=== PATIENT | female | born 1940 | race Caucasian/White ===

== ENCOUNTER → 2017-10-07 | Outpatient (CLI) | payer OTHER ==
[~2017-10-07] MED LIST: ALEN70TA55 PO; AMIT50TA3 PO; ASPI81CH43 PO; ATEN100T PO; CALC600T57 PO; CHOL20007 PO; CINN500C7 PO; CLON0.1T PO; COEN400C8 PO; LATA0.0015 EACHEYE; LISI2.5T47 PO; OMEG100078 PO; RED600TA PO; TIMO0.5S49 EACHEYE; ZOLP10TA6 PO
[2017-10-07 15:59] LABS: Urine Blood Negative /uL (Negative); Urine Specific Gravity 1.004 (1.001-1.035)
[2017-10-07 16:11] LABS: Alanine Aminotransferase 20 U/L (13-56); Albumin 3.8 g/dL (3.4-5.0); Alkaline Phosphatase 77 U/L (45-117); Anion Gap 8 (5-15); Aspartate Aminotransferase 18 U/L (15-37); BUN/Creatinine Ratio 13.5; Bilirubin, Direct < 0.1 mg/dL (0-0.2); Bilirubin, Total 0.2 mg/dL (0.2-1.0); Blood Urea Nitrogen 13 mg/dL (7-18); Calcium 9.8 mg/dL (8.5-10.1); Carbon Dioxide 26 mmol/L (21-32); Chloride 100 mmol/L (98-107); Cholesterol 191 mg/dL (< 200); GFR African American 73 mL/min; GFR Non-African American 60 mL/min; Glucose 84 mg/dL (74-106); HDL Cholesterol 51 mg/dL (40-59); LDL Cholesterol 129 mg/dL (< 100); Potassium 3.9 mmol/L (3.5-5.1); Sodium 134 mmol/L (136-145); Total Protein 7.9 g/dL (6.4-8.2); Triglycerides 110 mg/dL (< 150)
[2017-10-07 16:14] LABS: Basophils # (auto) 0.1 uL; Basophils % (auto) 1.4 % (0.0-2.0); Eosinophils # (auto) 0.4 uL; Eosinophils % (auto) 5.1 % (0.0-7.0); Hematocrit 40.4 % (36.0-46.0); Hemoglobin 13.6 g/dL (12.2-16.2); Lymphocytes % (auto) 25.2 % (10.0-50.0); Mean Corpuscular Hemoglobin 29.4 pg (28.0-32.0); Mean Corpuscular Hgb Conc. 33.6 g/dL (32.0-36.0); Mean Corpuscular Volume 87.3 fL (80.0-100.0); Monocytes # (auto) 0.7 uL; Monocytes % (auto) 8.8 % (0.0-12.0); Neutrophils # (auto) 4.8 uL; Neutrophils % (auto) 59.5 % (37.0-80.0); Nucleated Red Blood Cells % 0.6 %; Platelet Count (auto) 347 10^3/uL (140-450); Red Blood Cells 4.63 10^6/uL (4.0-5.20); Red Cell Distribution Width 14.6 % (11.8-14.3); White Blood Cell 8.1 10^3/uL (4.4-10.8)
== END | disposition home or self-care (01) ==
LOC: LAB 11:28
PROVIDERS: ATTEND Internal Medicine Cardiovascular Disease
DX: E78.5 Hyperlipidemia, unspecified (principal); D64.9 Anemia, unspecified; I10 Essential (primary) hypertension; E11.9 Type 2 diabetes mellitus without complications; E03.9 Hypothyroidism, unspecified; E55.9 Vitamin D deficiency, unspecified; N39.0 Urinary tract infection, site not specified; K74.1 Hepatic sclerosis
CPT/HCPCS: 36415; 80048; 80061; 80076; 81003; 82306; 83036; 84439; 84443; 85025

== ENCOUNTER → 2017-11-10 | Outpatient (CLI) | payer OTHER ==
[~2017-11-10] VITALS: Ht 152.4 cm; Wt 67.1 kg
== END | disposition home or self-care (01) ==
LOC: Rad HDHVI 07:56
PROVIDERS: ATTEND Internal Medicine Cardiovascular Disease
DX: I42.0 Dilated cardiomyopathy (principal); I11.0 Hypertensive heart disease with heart failure; I50.23 Acute on chronic systolic (congestive) heart failure; I08.1 Rheumatic disorders of both mitral and tricuspid valves
CPT/HCPCS: 78452; 93017; 93306; 96374; A9500

== ENCOUNTER 2018-02-20 15:25 | Inpatient (IN) | payer OTHER ==
[~2018-02-20] VITALS: Ht 152.4 cm; Wt 76.6 kg
[2018-02-20 16:41] LABS: Basophils # (auto) 0.1 uL; Eosinophils # (auto) 0.1 uL; Lymphocytes # (auto) 1.1 uL; Monocytes # (auto) 1.1 uL; Red Cell Distribution Width 14.3 % (11.8-14.3)
[2018-02-20 16:43] LABS: Basophils % (auto) 1.3 % (0.0-2.0); Eosinophils % (auto) 0.8 % (0.0-7.0); Hematocrit 29.8 % (36.0-46.0); Lymphocytes % (auto) 9.4 % (10.0-50.0); Mean Corpuscular Hgb Conc. 33.4 g/dL (32.0-36.0); Mean Corpuscular Volume 80.8 fL (80.0-100.0); Monocytes % (auto) 9.8 % (0.0-12.0); Neutrophils # (auto) 9.1 uL; Neutrophils % (auto) 78.7 % (37.0-80.0); Platelet Count (auto) 728 10^3/uL (140-450); Red Blood Cells 3.69 10^6/uL (4.0-5.20); White Blood Cell 11.6 10^3/uL (4.4-10.8)
[2018-02-20 16:55] LABS: Albumin 2.5 g/dL (3.4-5.0); BUN/Creatinine Ratio 13.9; Calcium 8.5 mg/dL (8.5-10.1); Potassium 3.5 mmol/L (3.5-5.1)
[2018-02-20 17:00] LABS: Bilirubin, Total 0.2 mg/dL (0.2-1.0); Total Protein 7.6 g/dL (6.4-8.2)
[2018-02-20] MEDS ORDERED: ONDANSETRON HCL 4 MG/2 ML VIAL IV PRN (22:15)
[2018-02-20] MEDS ORDERED: ACETAMINOPHEN 500 MG TAB PO PRN (22:15)
[2018-02-21 01:00] VITALS: BP 149/81
[2018-02-21] MEDS: ZOLPIDEM TARTRATE 5 MG TAB PO PRN ×2 (01:03→22:18)
[2018-02-21 05:00] VITALS: BP 155/80
[2018-02-21 07:15] LABS: Basophils # (auto) 0.1 uL; Basophils % (auto) 1.2 % (0.0-2.0); Hemoglobin 9.7 g/dL (12.2-16.2); Lymphocytes # (auto) 1.8 uL; Monocytes % (auto) 12.6 % (0.0-12.0); Neutrophils # (auto) 6.6 uL; Nucleated Red Blood Cells % 0.1 %
[2018-02-21 07:18] LABS: Eosinophils # (auto) 0.2 uL; Eosinophils % (auto) 1.5 % (0.0-7.0); Hematocrit 28.6 % (36.0-46.0); Lymphocytes % (auto) 18.2 % (10.0-50.0); Mean Corpuscular Hgb Conc. 33.7 g/dL (32.0-36.0); Mean Corpuscular Volume 79.9 fL (80.0-100.0); Monocytes # (auto) 1.3 uL; Neutrophils % (auto) 66.5 % (37.0-80.0); Platelet Count (auto) 659 10^3/uL (140-450); Red Blood Cells 3.58 10^6/uL (4.0-5.20); Red Cell Distribution Width 14.3 % (11.8-14.3)
[2018-02-21 07:33] LABS: BUN/Creatinine Ratio 13.8; Calcium 8.5 mg/dL (8.5-10.1); Potassium 3.5 mmol/L (3.5-5.1)
[2018-02-21 09:03] VITALS: BP 134/58
[2018-02-21] MEDS: METOPROLOL TARTRATE 50 MG TAB PO SCH ×2 (10:04→21:43)
[2018-02-21] MEDS: FUROSEMIDE 20 MG/2 ML VIAL IV SCH (10:05)
[2018-02-21] MEDS: ASPirin-EC 81 mg tab PO SCH (10:05)
[2018-02-21 12:53] VITALS: BP 117/73
[2018-02-21] MEDS: cefTRIAXone 1GM/10ml IVPUSH 10 ML IV SCH (13:55)
[2018-02-21] MEDS: AZITHROMYCIN 500MG/ 250ML 250 ML IV SCH (13:55)
[2018-02-21] MEDS ORDERED: LIDOCAINE 2% (LOCAL ANESTH.) PF 5ml SDV ONE (15:27)
[2018-02-21 15:41] LABS: INR 1.02 (0.9-1.15); Partial Thromboplastin Time 30.2 sec (23.78-33.04); Prothrombin Time 10.9 sec (9.27-12.13)
[2018-02-21] MEDS ORDERED: ALBUMIN 25% 100 ML IV ONE (16:45)
[2018-02-21] MEDS ORDERED: cloNIDine HCL 0.1 MG TAB PO PRN (16:45)
[2018-02-21 17:00] VITALS: BP 126/79
[2018-02-21] MEDS: ALBUTEROL SULF 2.5 MG/0.5ML(0.5%) NEB SOLN NEB SCH (19:30)
[2018-02-21] MEDS: IPRATROPIUM BROM 0.5 MG/2.5ML INH SOL NEB SCH (19:30)
[2018-02-21 22:00] VITALS: BP_SYST 138; BP_SYST 142; BP_DIAS 58; BP_DIAS 80
[2018-02-22] MEDS: IPRATROPIUM BROM 0.5 MG/2.5ML INH SOL NEB SCH ×3 (00:31→11:51)
[2018-02-22] MEDS: ALBUTEROL SULF 2.5 MG/0.5ML(0.5%) NEB SOLN NEB SCH ×3 (00:31→11:51)
[2018-02-22] MEDS: cefTRIAXone 1GM/10ml IVPUSH 10 ML IV SCH ×2 (01:57→13:06)
[2018-02-22 02:58] VITALS: BP 142/80
[2018-02-22 05:00] VITALS: BP 155/73
[2018-02-22 06:32] LABS: Basophils # (auto) 0.1 uL; Eosinophils # (auto) 0.1 uL
[2018-02-22 06:34] LABS: Basophils % (auto) 1.3 % (0.0-2.0); Eosinophils % (auto) 1.4 % (0.0-7.0); Hematocrit 27.1 % (36.0-46.0); Hemoglobin 9.1 g/dL (12.2-16.2); Lymphocytes # (auto) 1.5 uL; Lymphocytes % (auto) 17.8 % (10.0-50.0); Mean Corpuscular Hemoglobin 27.2 pg (28.0-32.0); Mean Corpuscular Hgb Conc. 33.7 g/dL (32.0-36.0); Mean Corpuscular Volume 80.8 fL (80.0-100.0); Monocytes # (auto) 1.1 uL; Neutrophils # (auto) 5.7 uL; Neutrophils % (auto) 66.5 % (37.0-80.0); Platelet Count (auto) 627 10^3/uL (140-450); Red Blood Cells 3.35 10^6/uL (4.0-5.20); Red Cell Distribution Width 14.9 % (11.8-14.3); White Blood Cell 8.6 10^3/uL (4.4-10.8)
[2018-02-22 06:38] LABS: BUN/Creatinine Ratio 15.8; Calcium 8.4 mg/dL (8.5-10.1)
[2018-02-22 06:46] LABS: Potassium 2.9 mmol/L (3.5-5.1)
[2018-02-22 08:40] VITALS: BP 140/75
[2018-02-22] MEDS ORDERED: POTASSIUM CHL 20 Meq TABLET PO ONE (09:00)
[2018-02-22] MEDS: FUROSEMIDE 20 MG/2 ML VIAL IV SCH (10:02)
[2018-02-22] MEDS: AZITHROMYCIN 500MG/ 250ML 250 ML IV SCH (10:03)
[2018-02-22] MEDS: ASPirin-EC 81 mg tab PO SCH (10:03)
[2018-02-22] MEDS: METOPROLOL TARTRATE 50 MG TAB PO SCH (10:03)
[2018-02-22] MEDS ORDERED: POTA10TA51 PO (12:58)
[2018-02-22] MEDS ORDERED: FURO20TA3 PO (12:58)
[2018-02-22 13:10] VITALS: BP 140/75
== END 2018-02-22 14:25 | disposition home health service (06) | DRG 199 ==
LOC: ER 15:25 → TELE 15:26 → TELE-WESTW 23:59
PROVIDERS: ADMIT Nurse Practitioner Family; ATTEND Internal Medicine
PROC: 0W993ZZ Drainage of Right Pleural Cavity, Percutaneous Approach (ICD-10-PCS; principal; 2018-02-21)
PROC: BB4BZZZ Ultrasonography of Pleura (ICD-10-PCS; 2018-02-21)
PROC: 0W993ZZ Drainage of Right Pleural Cavity, Percutaneous Approach (ICD-10-PCS; 2018-02-22)
PROC: BB4BZZZ Ultrasonography of Pleura (ICD-10-PCS; 2018-02-22)
DX: S27.1XXA Traumatic hemothorax, initial encounter (principal); J86.9 Pyothorax without fistula; J96.00 Acute respiratory failure, unspecified whether with hypoxia or hypercapnia; I50.33 Acute on chronic diastolic (congestive) heart failure; E43 Unspecified severe protein-calorie malnutrition; J90 Pleural effusion, not elsewhere classified; E87.1 Hypo-osmolality and hyponatremia; J98.11 Atelectasis; I44.7 Left bundle-branch block, unspecified; I11.0 Hypertensive heart disease with heart failure; E11.9 Type 2 diabetes mellitus without complications; I25.10 Atherosclerotic heart disease of native coronary artery without angina pectoris; M81.0 Age-related osteoporosis without current pathological fracture; X58.XXXA Exposure to other specified factors, initial encounter; Z82.49 Family history of ischemic heart disease and other diseases of the circulatory system; Z80.42 Family history of malignant neoplasm of prostate; Z88.2 Allergy status to sulfonamides; Z79.82 Long term (current) use of aspirin; Z79.899 Other long term (current) drug therapy; Z68.33 Body mass index [BMI] 33.0-33.9, adult; Y93.89 Activity, other specified; Y92.89 Other specified places as the place of occurrence of the external cause; Y99.8 Other external cause status
CPT/HCPCS: 10022; 36415; 36600; 71045; 71250; 76604; 76942; 80048; 80053; 82805; 83880; 83986; 84484; 85025; 85610; 85730; 87070; 87205; 89051; 93005; 94640; 96365; 96367; 96375; 99291; J0696; J2001; P9047

== ENCOUNTER 2018-03-15 17:51 | Inpatient (IN) | payer OTHER ==
[~2018-03-15] VITALS: Ht 1 cm; Wt 62.8 kg
[2018-03-15 18:20] VITALS: BP 140/81
[2018-03-15] MEDS ORDERED: ACETAMINOPHEN 325 MG TAB PO PRN (20:00)
[2018-03-15 20:04] LABS: Basophils # (auto) 0.1 uL; Basophils % (auto) 0.9 % (0.0-2.0); Eosinophils # (auto) 0.1 uL; Eosinophils % (auto) 1.1 % (0.0-7.0); Hematocrit 29.7 % (36.0-46.0); Hemoglobin 9.6 g/dL (12.2-16.2); Lymphocytes # (auto) 1.1 uL; Lymphocytes % (auto) 14.3 % (10.0-50.0); Mean Corpuscular Hemoglobin 25.3 pg (28.0-32.0); Mean Corpuscular Hgb Conc. 32.2 g/dL (32.0-36.0); Mean Corpuscular Volume 78.6 fL (80.0-100.0); Monocytes # (auto) 0.7 uL; Monocytes % (auto) 9.6 % (0.0-12.0); Neutrophils # (auto) 5.7 uL; Neutrophils % (auto) 74.1 % (37.0-80.0); Platelet Count (auto) 552 10^3/uL (140-450); Red Blood Cells 3.78 10^6/uL (4.0-5.20); Red Cell Distribution Width 15.1 % (11.8-14.3); White Blood Cell 7.7 10^3/uL (4.4-10.8)
[2018-03-15 20:20] LABS: Albumin 2.8 g/dL (3.4-5.0); Calcium 8.5 mg/dL (8.5-10.1); Potassium 3.2 mmol/L (3.5-5.1)
[2018-03-15 20:23] LABS: Bilirubin, Total 0.4 mg/dL (0.2-1.0); Total Protein 7.5 g/dL (6.4-8.2)
[2018-03-15 20:45] LABS: INR 1.04 (0.9-1.15); Prothrombin Time 11.1 sec (9.27-12.13)
[2018-03-15 21:37] VITALS: BP 152/60
[2018-03-15] MEDS ORDERED: METOPROLOL TARTRATE 50 MG TAB PO SCH (22:00)
[2018-03-15] MEDS: cloNIDine HCL 0.1 MG TAB PO SCH (22:53)
[2018-03-15] MEDS: ATENOLOL 50 MG TAB PO SCH (22:56)
[2018-03-15] MEDS: ZOLPIDEM TARTRATE 5 MG TAB PO PRN (22:57)
[2018-03-15] MEDS: TIMOLOL MAL 0.5% OPTH(EYE) SOL 5ML EACHEYE SCH (23:04)
[2018-03-15] MEDS: LATANOPROST 0.005 % OPTH(EYE) SOL 2.5ML EACHEYE SCH (23:04)
[2018-03-15] MEDS: AMITRIPTYLINE HCL 25 MG TAB PO SCH (23:10)
[2018-03-16 04:53] VITALS: BP 134/85
[2018-03-16 08:34] VITALS: BP 132/81
[2018-03-16] MEDS: NITROGLYCERIN 0.4MG/HR TOPICAL PATCH TD SCH (10:00)
[2018-03-16] MEDS: TIMOLOL MAL 0.5% OPTH(EYE) SOL 5ML EACHEYE SCH ×2 (10:02→22:15)
[2018-03-16] MEDS: cloNIDine HCL 0.1 MG TAB PO SCH ×2 (10:03→22:10)
[2018-03-16] MEDS: ATENOLOL 50 MG TAB PO SCH ×2 (10:04→22:11)
[2018-03-16] MEDS ORDERED: IOHEXOL 300 MG/ML 100ML BOTTLE IJ ONE (12:43)
[2018-03-16 13:48] VITALS: BP 139/55
[2018-03-16 17:09] VITALS: BP 128/55
[2018-03-16] MEDS ORDERED: cloNIDine HCL 0.1 MG TAB ONE (20:53)
[2018-03-16 21:36] VITALS: BP 153/62
[2018-03-16] MEDS: AMITRIPTYLINE HCL 25 MG TAB PO SCH (22:11)
[2018-03-16] MEDS: ZOLPIDEM TARTRATE 5 MG TAB PO PRN (22:11)
[2018-03-16] MEDS: LATANOPROST 0.005 % OPTH(EYE) SOL 2.5ML EACHEYE SCH (22:15)
[2018-03-17 04:41] VITALS: BP 114/62
[2018-03-17 08:00] VITALS: BP 128/81
[2018-03-17 09:00] VITALS: BP 128/81
[2018-03-17] MEDS: NITROGLYCERIN 0.4MG/HR TOPICAL PATCH TD SCH (10:00)
[2018-03-17] MEDS: ATENOLOL 50 MG TAB PO SCH (10:06)
[2018-03-17] MEDS: cloNIDine HCL 0.1 MG TAB PO SCH (10:07)
[2018-03-17] MEDS: TIMOLOL MAL 0.5% OPTH(EYE) SOL 5ML EACHEYE SCH (10:07)
[2018-03-17 12:16] VITALS: BP 128/81
[2018-03-17 13:00] VITALS: BP 91/52
== END 2018-03-17 16:19 | disposition home or self-care (01) | DRG 180 ==
LOC: EAST 17:51
PROVIDERS: ADMIT Internal Medicine Cardiovascular Disease; ATTEND Internal Medicine
PROC: 0W993ZZ Drainage of Right Pleural Cavity, Percutaneous Approach (ICD-10-PCS; principal; 2018-03-16)
DX: C34.90 Malignant neoplasm of unspecified part of unspecified bronchus or lung (principal); J96.00 Acute respiratory failure, unspecified whether with hypoxia or hypercapnia; J91.0 Malignant pleural effusion; C78.6 Secondary malignant neoplasm of retroperitoneum and peritoneum; C78.1 Secondary malignant neoplasm of mediastinum; D64.9 Anemia, unspecified; E87.6 Hypokalemia; I10 Essential (primary) hypertension; I70.8 Atherosclerosis of other arteries; K80.20 Calculus of gallbladder without cholecystitis without obstruction
CPT/HCPCS: 10022; 36415; 71045; 71260; 74177; 76604; 76942; 80053; 82378; 83615; 85025; 85610; 85730; 86300; 86301; 86304; 87081

== ENCOUNTER → 2018-03-15 | Outpatient (CLI) | payer OTHER ==
[~2018-03-15] MED LIST changes: +ALEN1TAB32 PO; -ALEN70TA55 PO; +FURO20TA3 PO; +POTA10TA51 PO
== END | disposition home or self-care (01) ==
LOC: Rad HDHVI 14:28
PROVIDERS: ATTEND Internal Medicine Cardiovascular Disease
DX: I08.1 Rheumatic disorders of both mitral and tricuspid valves (principal); I50.9 Heart failure, unspecified; R06.02 Shortness of breath; Z88.2 Allergy status to sulfonamides
CPT/HCPCS: 93306

== ENCOUNTER → 2018-03-28 | Outpatient (CLI) | payer OTHER | END | disposition home or self-care (01) | LOC: LAB 08:10 | PROVIDERS: ATTEND Internal Medicine | DX: C34.90 Malignant neoplasm of unspecified part of unspecified bronchus or lung (principal); C78.1 Secondary malignant neoplasm of mediastinum; C78.6 Secondary malignant neoplasm of retroperitoneum and peritoneum | CPT/HCPCS: 86301; 86304 ==